=== PATIENT | male | born 1975 | race Caucasian/White ===

== ENCOUNTER → 2021-10-15 11:30 | Outpatient (CLI) | payer BC, OTHER, SELFPAY | PROVIDERS: PCP Family Medicine; Visit Provider Urology | DX: Z01.812 Encounter for preprocedural laboratory examination (principal); Z20.822 Contact with and (suspected) exposure to COVID-19; Z30.2 Encounter for sterilization | CPT/HCPCS: C9803; U0003; U0005 ==

== ENCOUNTER 2021-10-17 06:01 | Day surgery (SDC) | payer BC, OTHER, SELFPAY ==
[2021-10-13 13:13] VITALS: BMI 28.7
[2021-10-17 06:20] VITALS: BP 171/101; PULSE 66; RESP 18; TEMP 36.4; O2SAT 99
--- NOTE | 2021-10-17 07:32 | HMH.ANESCL ---
[facility] [place] Anesthesia Checklist - Patient Identification Patient Identification: Arm Band - Structural Data Admitted From: Home Planned Operative Procedure/s: Vasectomy Consent for Planned Operative Procedure(s) Verified: Yes Verified Documents: Surgical Consent, History and Physical - NPO Status Verified Time NPO: 00:00 - Additional verifications Anesthesia Reactions: No Hx Blood Transfusions: No Blood Transfusion Reaction: No - Cardiovascular Assessment Heart Sounds: S1 & S2 Pulse Rhythm: Regular - Airway Assessment C-Spine Mobility Assessed: Yes TMJ Mobility Assessed: Yes Dentition: Good Dentition - Neurological Assessment Level of Consciousness: Awake, Alert - Anesthesia Plan Anesthesia Risk discussed: Yes Anesthesia Plan: Verified ASA Class: II Anesthesia Type: MAC [facility] [place] History I have reviewed the patient's past medical history: Yes Medical History: Reports:: Hypertension Denies:: Cancer, Diabetes Mellitus Type 1, Diabetes Mellitus Type 2, Internal Pacemaker, MRSA, Seizures *Have you ever received a pneumonia vaccine?: No *Have you received a flu vaccine this season?: No Other Medical History: Denies: Blood Transfusion Reaction Anesthesia experience/problems:: nac Other Surgeries: Yes: Hernia Repair. No: Pacemaker Amputation: No Fractures: No - *Social History Last grade of school completed: High school graduate Smoking Status: Never smoker Tobacco Type: cigarettes, smokeless tobacco # Packs/Day (cigarettes): 1 Alcohol Intake: current Alcohol Intake Frequency:: a few times a week Substance Use Type: denies use *Occupational Status:: employed Housing: house Household Members: spouse, family *Travel in the last 8 weeks: None Family Hx:: No significant family history
[2021-10-17 08:26] VITALS: BP 123/79; PULSE 70; RESP 16; TEMP 36.2; O2SAT 95
--- NOTE | 2021-10-17 08:36 | HMH.OPNOTE ---
Date of procedure: 10/17/21 Pre-op Diagnosis:: Sterilization Post-op Diagnosis:: Sterilization Procedure performed:: Vasectomy Surgeon:: Silvano Vargas MD TECHNICAL PROJECT LEAD:: Other (zulema) Anesthesia: MAC Estimated blood loss (mL): 0 Clinical Note:: 46-year-old white male presents for vasectomy. Office consultation was performed previously. Operative findings:: Physical exam reveals normal scrotum and testicles. Procedure was performed without difficulty. Operative note:: Patient taken to the operating room after informed consent was obtained. Placed on the operating table in the supine position and monitored anesthesia care was administered. He was prepped and draped in the standard surgical fashion. Physical examination was within normal limits. The left vas was grasped between 2 fingers and brought up to the midline raphae. Local anesthetic was placed under the skin and around the vas. After adequate analgesia a midline incision was made in the midline raphae about 2 cm in length. A tenaculum was used to grasp the vas and it was brought up through the incision. The basal sheath was incised and the vasa proper was dissected from its surrounding adventitial tissue. 1 clip was placed distally and 2 clips were placed proximally. A 1 cm segment was excised and the basal lumens were cauterized. Hemostasis was achieved of the surrounding tissue and the left vas was dropped back into the left hemiscrotum. Attention was turned to the right vas and the identical procedure was performed. The right vas was brought up through the same midline incision and local anesthetic was placed. The basal sheath incised and the past proper was isolated from and surrounding adventitial tissues. Clips were placed and a 1 cm segment excised. Basal lumen was cauterized and hemostasis performed within the bleeding and the surrounding tissue. Right vas was dropped back into the right hemiscrotum and a 3-0 chromic was placed into the incision in a horizontal mattress fashion. Compression dressing applied. Patient tolerated procedure well there are no complications. Condition: stable Disposition: same day Specimens:: Vas segments were not sent Complications:: None
[2021-10-17 08:41] VITALS: BP 150/92; PULSE 68; RESP 18; TEMP 36.2; O2SAT 95
[2021-10-17 08:56] VITALS: BP 147/104; PULSE 68; RESP 18; TEMP 36.2; O2SAT 98
[2021-10-17 09:25] VITALS: BP 143/106; PULSE 59; RESP 18; TEMP 36.2; O2SAT 99
== END 2021-10-17 09:25 | disposition home or self-care (01) ==
LOC: OR 06:02
PROVIDERS: PCP Family Medicine; Visit Provider Urology
PROC: (CPT 55250; principal; 2021-10-17 07:30)
DX: Z30.2 Encounter for sterilization (principal); I10 Essential (primary) hypertension; Z79.899 Other long term (current) drug therapy
CPT/HCPCS: 55250; J2704

== ENCOUNTER 2022-10-12 08:45 | Emergency (ER) | payer BC, OTHER, SELFPAY ==
[2022-10-12 08:46] VITALS: BP 160/103; PULSE 61; RESP 18; TEMP 36.8; O2SAT 100; BMI 29.4
--- NOTE | 2022-10-12 09:10 | EXP.UTC ---
Discharge Plan Disposition Patient Disposition: Home, Self-Care Condition: Good Prescriptions Prescriptions: New cyclobenzaprine 10 mg Tablet 10 mg PO BID PRN (Reason: Muscle Spasm) Qty: 20 0RF methylprednisolone 4 mg Tablets,Dose Pack 4 mg PO DIRECTED Qty: 21 0RF No Action metoprolol tartrate 100 mg tablet 100 mg PO DAILY Referrals Follow up/Referrals: Saman Barraza [Primary Care Provider] - See instructions Activity Restrictions/Add. Instructions Additional Instructions/Restrictions: Go home and rest. It would be best if you rested tomorrow too. No heavy lifting. No twisting. Take the oral medications as directed. The muscle relaxer (cyclobenzaprine--Flexeril) will make you drowsy, so don't drive or operate heavy machinery after taking it. Don't start the oral steroids (medrol dose pack) until tomorrow, since you had the shots in here today. Follow up with your regular doctor. GO TO THE ER FOR ANY WORSENING SYMPTOMS OR CONCERN, ESPECIALLY BOWEL OR BLADDER ISSUES, SADDLE AREA NUMBNESS, FEVER, ETC Clinical Impressions Clinical Impression: Low back pain Instructions Patient Instructions: Low Back Pain, DI for Low Back Pain Discharge ED Provider: Kaleb Lopez [facility] General Stated complaint: Back pain Mode of Arrival: Ambulatory Source of Information: Patient Limitations: No Limitations Time Seen by Provider: 10/12/22 09:10 Description of Symptoms (Recalled from Triage Doc. by RN): Patient reports back pain that started 6 days ago. HEENT Symptoms (Recalled from RN notes): No Resp Symptoms (Recalled from RN notes): No Skin Symptoms (Recalled from RN notes): No MS Symptoms (Recalled from RN notes): Yes Functional Status (Recalled from RN notes): wnl History of Present Illness Provider Complaint: He states that for the past 5 days he has had low back pain that radiates down his left leg. He denies any recent injury or falls. He has a history of having episodes of pain like this at times. He usually has to get anti-inflammatory injection and steroid injection to get it better. He denies any urinary symptoms. Related Data Home Medications Medication Instructions Recorded Confirmed metoprolol tartrate 100 mg tablet 100 mg PO DAILY High blood pressure 08/17/21 10/17/21 Previous Rx's Medication Instructions Recorded cyclobenzaprine 10 mg tablet 10 mg PO BID PRN Muscle Spasm #20 10/12/22 tabs methylprednisolone 4 mg tablets in 4 mg PO DIRECTED #21 tabs 10/12/22 a dose pack Allergies Allergy/AdvReac Type Severity Reaction Status Date / Time Sulfa (Sulfonamide Allergy Mild Verified 10/13/21 13:20 Antibiotics) [SULFA (SULFONAMIDE ANTIBIOTICS)] Worker's Comp Is this a Worker's Comp case?: No [facility] Disclaimer: The information contained in this section may have been updated after the patient was seen, as this information can be updated by other users. Social History Smoking Status: Never smoker alcohol intake: current substance use type: denies use current occupational status: employed Travel in the last 8 weeks: None household members: spouse and family housing: house current occupation: self-employeed caffeine: Yes ROS Obtained: Yes All systems reviewed & no additional complaints except as documented Constitutional Constitutional: Denies chills and Denies fever(s) Eyes Eyes: Denies eye discharge ENT Ears, Nose, Mouth, and Throat: Denies dizziness, Denies otalgia and Denies sore throat Cardiovascular Cardiovascular: Denies chest pain Respiratory Respiratory: Denies shortness of breath, Denies chest congestion, Denies cough, Denies stridor and Denies wheezing Gastrointestinal Gastrointestingal: Denies nausea or vomiting Musculoskeletal Musculoskeletal: Reports system reviewed and no additional complaints, except as documented and Denies arthralgias Integumentary/Breasts Skin/Breast: Denies rash Neuro
[2022-10-12 09:44] VITALS: BP 160/103; PULSE 61; RESP 18; TEMP 36.8; O2SAT 100
== END 2022-10-12 09:45 | disposition home or self-care (01) ==
PROVIDERS: Emergency Provider Nurse Practitioner Family; PCP Family Medicine
DX: M54.50 Low back pain, unspecified (principal)
CPT/HCPCS: 96372; 99204; 99212; G0463

== ENCOUNTER 2023-05-26 13:23 | Emergency (ER) | payer BC, OTHER, SELFPAY ==
[2023-05-26 13:45] VITALS: BP 140/95; PULSE 70; RESP 17; TEMP 36.8; O2SAT 95; BMI 31.2
[2023-05-26 13:59] LABS: UTC Influenza A Antigen Negative (Negative); UTC Influenza B Antigen Positive (Negative)
--- NOTE | 2023-05-26 14:00 | ED_ITS ---
Discharge Plan Disposition Patient Disposition: Home, Self-Care Condition: Good Prescriptions Prescriptions: New oseltamivir [Tamiflu] 75 mg capsule 75 mg PO Q12H 5 Days Qty: 10 0RF benzonatate 100 mg capsule 100 mg PO TID PRN (Reason: cough) Qty: 30 0RF amoxicillin 875 mg tablet 875 mg PO BID 10 Days Qty: 20 0RF No Action metoprolol tartrate 100 mg tablet 100 mg PO DAILY bupropion HCl 150 mg tablet sustained-release 12 hr 150 mg PO DAILY hydrochlorothiazide 25 mg tablet 25 mg PO DAILY Referrals Follow up/Referrals: Saman Barraza [Primary Care Provider] - See instructions Activity Restrictions/Add. Instructions Additional Instructions/Restrictions: Do not take antibiotics unless symptoms of sinus infection persist for 2 weeks. Clinical Impressions Clinical Impression: Influenza due to influenza virus, type B Upper respiratory tract infection Qualifiers: URI type: unspecified URI Qualified Code(s): J06.9 - Acute upper respiratory infection, unspecified Instructions Patient Instructions: DI for Influenza -- Adult Discharge ED Provider: Cecilia Alexis [facility] General Stated complaint: chills, congestion, body aches Mode of Arrival: Ambulatory Source of Information: Patient Limitations: No Limitations Time Seen by Provider: 05/26/23 13:59 Description of Symptoms (Recalled from Triage Doc. by RN): PATIENT C/O CONGESTION AND CHILLS X 2 DAYS HEENT Symptoms (Recalled from RN notes): Yes Resp Symptoms (Recalled from RN notes): No Skin Symptoms (Recalled from RN notes): No MS Symptoms (Recalled from RN notes): No Functional Status (Recalled from RN notes): WNL Related Data Home Medications Medication Instructions Recorded Confirmed metoprolol tartrate 100 mg tablet 100 mg PO DAILY High blood pressure 08/17/21 05/26/23 bupropion HCl 150 mg tablet,12 hr 150 mg PO DAILY 05/26/23 05/26/23 sustained-release hydrochlorothiazide 25 mg tablet 25 mg PO DAILY 05/26/23 05/26/23 Previous Rx's Medication Instructions Recorded amoxicillin 875 mg tablet 875 mg PO BID 10 days #20 tabs 05/26/23 benzonatate 100 mg capsule 100 mg PO TID PRN cough #30 caps 05/26/23 oseltamivir 75 mg capsule (Tamiflu) 75 mg PO Q12H 5 days #10 caps 05/26/23 Allergies Allergy/AdvReac Type Severity Reaction Status Date / Time Sulfa (Sulfonamide Allergy Mild Verified 10/13/21 13:20 Antibiotics) [SULFA (SULFONAMIDE ANTIBIOTICS)] Worker's Comp Is this a Worker's Comp case?: No [facility] Disclaimer: The information contained in this section may have been updated after the patient was seen, as this information can be updated by other users. Social History Smoking Status: Never smoker alcohol intake: current substance use type: denies use current occupational status: employed Travel in the last 8 weeks: None household members: spouse and family housing: house current occupation: self-employeed caffeine: Yes ROS Obtained: Yes All systems reviewed & no additional complaints except as documented Constitutional Constitutional: Reports system reviewed and no additional complaints, except as documented, Reports fever(s), Reports headache(s) and Reports malaise Eyes Eyes: Reports system reviewed and no additional complaints, except as documented ENT Ears, Nose, Mouth, and Throat: Reports system reviewed and no additional complaints, except as documented, Reports headache(s), Reports nasal congestion, Reports nasal discharge and Reports sore throat Cardiovascular Cardiovascular: Reports system reviewed and no additional complaints, except as documented Respiratory Respiratory: Reports system reviewed and no additional complaints, except as documented and Reports non-productive cough Gastrointestinal Gastrointestingal: Reports system reviewed and no additional complaints, except as documented Genitourinary Male Genitourinary: Reports system reviewed and no additional complaints, except as documented Musculoskeletal Musculoskeletal: Reports system reviewed and no additional complaints, except as documented Integumentary/Breasts Skin/Breast: Reports system reviewed and no additional complaints, except as documented Neurologic Neurologic: Reports system reviewed and no additional complaints, except as documented and Reports headache(s) Endocrine Endocrine: Reports system reviewed and no additional complaints, except as documented Hematologic/Lymphatic Henatologic/Lymphatic: Reports system reviewed and no additional complaints, except as documented Allergic/Immunologic Allergic/Immunologic: Reports system reviewed and no additional complaints, except as documented Physical Exam General General appearance: alert Comment: ill appearing Head Head exam: atraumatic and normocephalic Eye Eye exam: Present normal appearance ENT ENT exam: Present mucous membranes dry Expanded ENT Exam External ear exam: Present normal external inspection Nose exam: Present sinus tenderness Nasal speculum exam: Bilateral: other (clear drainage) Mouth exam: Present normal external inspection and tongue normal Teeth exam: Present normal inspection Throat exam: Present normal inspection Neck Neck exam: Present normal inspection Chest Chest inspection: Present normal inspection and symmetric chest wall rise Respiratory Respiratory exam: Present normal lung sounds bilaterally Cardiovascular Cardiovascular exam: Present regular rate and normal rhythm Abdominal Exam Abdominal exam: Present soft and normal bowel sounds Extremities Exam Extremities exam: Present normal inspection Back Exam Back exam: Present normal inspection Neurological Exam Neurological exam: Present alert and oriented X3 Psychiatric Psychiatric exam: Present normal affect and normal mood Skin Skin exam: Present warm, dry and intact Lymphatic Lymphatic Findings: no adenopathy Other Other exam information: Pt very concerned as he relates that after having flu he always gets a sinus infection. Medical Decision Making Marcel Inquiry Pt receiving controlled substance: No Marcel was queried for this patient: No Vital Signs: 05/26/23 13:45 Temperature 98.3 F Temperature Source Oral Pulse Rate [Left Brachial] 70 Respiratory Rate 17 Blood Pressure [Left Arm] 140/95 H Blood Pressure Mean [Left Arm] 110 Blood Pressure Source [Left Arm] Automatic Cuff Blood Pressure Position [Left Arm] Sitting 02 Sat by Pulse Oximetry 95 Oxygen Delivery Method Room Air Lab Data Lab Results 05/26/23 13:50: Influenza Type A Ag Negative, Influenza Type B Ag Positive A
[2023-05-26 14:18] VITALS: BP 140/95; PULSE 70; RESP 17; TEMP 36.8; O2SAT 95
== END 2023-05-26 14:20 | disposition home or self-care (01) ==
PROVIDERS: Emergency Provider Nurse Practitioner Family; PCP Family Medicine
DX: J10.1 Influenza due to other identified influenza virus with other respiratory manifestations (principal); R05.9 Cough, unspecified; R51.9 Headache, unspecified; R09.81 Nasal congestion; R07.0 Pain in throat
CPT/HCPCS: 87804; 99212; 99214; G0463

== ENCOUNTER 2023-09-30 14:14 | Emergency (ER) | payer BC, OTHER, SELFPAY ==
[2023-09-30 15:00] VITALS: BP 136/83; PULSE 70; RESP 18; TEMP 36.3; O2SAT 96; BMI 29.8
--- NOTE | 2023-09-30 15:13 | ED_ITS ---
Discharge Plan Disposition Patient Disposition: Home, Self-Care Condition: Good Prescriptions Prescriptions: New cephalexin 500 mg tablet 500 mg PO BID 7 Days Qty: 14 0RF No Action metoprolol tartrate 100 mg tablet 100 mg PO DAILY hydrochlorothiazide 25 mg tablet 25 mg PO DAILY Referrals Follow up/Referrals: Saman Barraza [Primary Care Provider] - See instructions Activity Restrictions/Add. Instructions Additional Instructions/Restrictions: return in 7-10 days for suture removal monitor for s/s of infection return if needed Clinical Impressions Clinical Impression: Laceration Instructions Patient Instructions: DI for Laceration Repair -- Simple, DI for Laceration Repair -- Finger Discharge ED Provider: Dayanara ([facility])[place] [facility] [place] General Stated complaint: cut on left index finger Mode of Arrival: Ambulatory Source of Information: Patient Limitations: No Limitations Time Seen by Provider: 09/30/23 15:13 Description of Symptoms (Recalled from Triage Doc. by RN): left index laceration HEENT Symptoms (Recalled from RN notes): No Resp Symptoms (Recalled from RN notes): No Skin Symptoms (Recalled from RN notes): Yes MS Symptoms (Recalled from RN notes): No Functional Status (Recalled from RN notes): n/a History of Present Illness Provider Complaint: 48 yr old presents for left index finger laceration. pt states he was cleaning a catfish and the emmanuel cut him. last tetnus was 2018 Related Data Home Medications Medication Instructions Recorded Confirmed metoprolol tartrate 100 mg tablet 100 mg PO DAILY High blood pressure 08/17/21 09/30/23 hydrochlorothiazide 25 mg tablet 25 mg PO DAILY 05/26/23 09/30/23 Previous Rx's Medication Instructions Recorded cephalexin 500 mg tablet 500 mg PO BID 7 days #14 tabs 09/30/23 Allergies Allergy/AdvReac Type Severity Reaction Status Date / Time Sulfa (Sulfonamide Allergy Mild Verified 09/30/23 15:08 Antibiotics) [SULFA (SULFONAMIDE ANTIBIOTICS)] Worker's Comp Is this a Worker's Comp case?: No [facility] Disclaimer: The information contained in this section may have been updated after the patient was seen, as this information can be updated by other users. Social History Smoking Status: Never smoker alcohol intake: current alcohol intake frequency: a few times a week substance use type: denies use current occupational status: employed Travel in the last 8 weeks: None household members: spouse and family housing: house current occupation: self-employeed caffeine: Yes ROS Obtained: Yes All systems reviewed & no additional complaints except as documented Constitutional Constitutional: Reports system reviewed and no additional complaints, except as documented Eyes Eyes: Reports system reviewed and no additional complaints, except as documented ENT Ears, Nose, Mouth, and Throat: Reports system reviewed and no additional complaints, except as documented Cardiovascular Cardiovascular: Reports system reviewed and no additional complaints, except as documented Respiratory Respiratory: Reports system reviewed and no additional complaints, except as documented Musculoskeletal Musculoskeletal: Reports system reviewed and no additional complaints, except as documented Integumentary/Breasts Skin/Breast: Reports system reviewed and no additional complaints, except as documented, Reports as per HPI and Reports wounds Neurologic Neurologic: Reports system reviewed and no additional complaints, except as documented Endocrine Endocrine: Reports system reviewed and no additional complaints, except as documented Hematologic/Lymphatic Henatologic/Lymphatic: Reports system reviewed and no additional complaints, except as documented Allergic/Immunologic Allergic/Immunologic: Reports system reviewed and no additional complaints, except as documented Physical Exam General General appearance: alert and in no apparent distress Head Head exam: atraumatic Respiratory Respiratory exam: Present normal lung sounds bilaterally Cardiovascular Cardiovascular exam: Present regular rate and normal rhythm Expanded Upper Extremity Exam Left: Hand L/R front image: 2 1. laceration Neurological Exam Neurological exam: Present alert and oriented X3 Lymphatic Lymphatic Findings: no adenopathy Medical Decision Making Medical Records Medical records reviewed: Yes I reviewed the patient's medical records. Marcel Inquiry Pt receiving controlled substance: No Marcel was queried for this patient: No Vital Signs: 09/30/23 15:00 Temperature 97.3 F L Temperature Source Oral Pulse Rate [Right Radial] 70 Respiratory Rate 18 Blood Pressure [Right Arm] 136/83 Blood Pressure Mean [Right Arm] 100 Blood Pressure Source [Right Arm] Automatic Cuff Blood Pressure Position [Right Arm] Sitting 02 Sat by Pulse Oximetry 96 Oxygen Delivery Method Room Air Procedures Laceration Laceration 1: Site: finger Side (If applicable): left Size (cm): 2 Description: linear Depth: simple, single layer Local Anesthetic: lidocaine 1% Amount of anesthesia used (mL): 5 Pre-repair: wound explored, irrigated extensively and deep structures intact Skin layer closed with: nylon Size (cm): 4-0 Number of sutures: 4 Technique: simple, interrupted
[2023-09-30] MEDS: TET/DIPHTH/PERT-ADULT 0.5ML SYRINGE 0.5 ML IM (15:45)
[2023-09-30 16:26] VITALS: BP 136/83; PULSE 70; RESP 18; TEMP 36.3; O2SAT 96
--- NOTE | 2023-09-30 16:27 | PC.NURSE ---
provider put in 4 stitches
== END 2023-09-30 16:27 | disposition home or self-care (01) ==
PROVIDERS: Emergency Provider Nurse Practitioner Family; PCP Family Medicine
DX: S61.201A Unspecified open wound of left index finger without damage to nail, initial encounter (principal); W26.8XXA Contact with other sharp object(s), not elsewhere classified, initial encounter; Z23 Encounter for immunization
CPT/HCPCS: 12001; 90471; 90715; 99213; 99214; G0463

== ENCOUNTER 2023-10-21 13:18 | Emergency (ER) | payer BC, OTHER, SELFPAY ==
[2023-10-21 13:35] VITALS: BP 113/71; PULSE 78; RESP 18; TEMP 37.2; O2SAT 96; BMI 30.2
--- NOTE | 2023-10-21 13:35 | ED_ITS ---
Discharge Plan Disposition Patient Disposition: Home, Self-Care Condition: Good Prescriptions Prescriptions: New azithromycin [Zithromax] 250 mg tablet 250 mg PO UD DOSE PK Qty: 6 0RF Rx Instructions: Take two (2) tablets today, then one (1) tablet days #2 thru #5 methylprednisolone 4 mg Tablets,Dose Pack 4 mg PO DIRECTED 6 Days Qty: 21 0RF Rx Instructions: Take 1 pack as directed for 6 days albuterol sulfate [Ventolin HFA] 90 mcg/actuation HFA aerosol inhaler 2 puff inhalation Q6H PRN (Reason: shortness of breath or wheezing) Qty: 6.7 0RF benzonatate 100 mg capsule 100 mg PO TIDP PRN (Reason: Cough) Qty: 30 0RF No Action metoprolol tartrate 100 mg tablet 100 mg PO DAILY hydrochlorothiazide 25 mg tablet 25 mg PO DAILY Referrals Follow up/Referrals: Saman Barraza [Primary Care Provider] - See instructions Activity Restrictions/Add. Instructions Additional Instructions/Restrictions: Drink plenty of fluids. Take tylenol or ibuprofen for pain or fever. Take the medications as directed. Don't start the oral steroids (medrol dose pack) until tomorrow since you had the shot her Follow up with your regular doctor. GO TO THE ER FOR ANY WORSENING SYMPTOMS Clinical Impressions Clinical Impression: Acute viral syndrome, Bronchitis Instructions Patient Instructions: DI for Acute Bronchitis, DI for Viral Syndrome Discharge ED Provider: Kaleb Lopez [facility] [place] General Stated complaint: Chills, body aches Time Seen by Provider: 10/21/23 13:35 History of Present Illness Provider Complaint: He states that for the past 3 days he has had worsening body aches, chills, low grade fever, chest congestion and sinus congestion. Related Data Home Medications Medication Instructions Recorded Confirmed metoprolol tartrate 100 mg tablet 100 mg PO DAILY High blood pressure 08/17/21 10/21/23 hydrochlorothiazide 25 mg tablet 25 mg PO DAILY 05/26/23 09/30/23 Previous Rx's Medication Instructions Recorded albuterol sulfate 90 mcg/actuation 2 puff inhalation Q6H PRN 10/21/23 aerosol inhaler (Ventolin HFA) shortness of breath or wheezing #6.7 grams azithromycin 250 mg tablet 250 mg PO UD DOSE PK #6 tabs 10/21/23 (Zithromax) benzonatate 100 mg capsule 100 mg PO TIDP PRN Cough #30 caps 10/21/23 methylprednisolone 4 mg tablets in 4 mg PO DIRECTED 6 days #21 tabs 10/21/23 a dose pack Allergies Allergy/AdvReac Type Severity Reaction Status Date / Time Sulfa (Sulfonamide Allergy Mild Verified 09/30/23 15:08 Antibiotics) [SULFA (SULFONAMIDE ANTIBIOTICS)] [facility] Disclaimer: The information contained in this section may have been updated after the patient was seen, as this information can be updated by other users. Medical History (Updated 10/21/23 @ 14:18 by Kaleb Lopez APRN) Hypertension Social History Smoking Status: Never smoker alcohol intake: current alcohol intake frequency: a few times a week substance use type: denies use current occupational status: employed Travel in the last 8 weeks: None household members: spouse and family housing: house current occupation: self-employeed caffeine: Yes ROS Obtained: Yes All systems reviewed & no additional complaints except as documented Constitutional Constitutional: Reports chills and Reports fever(s) Eyes Eyes: Denies eye discharge ENT Ears, Nose, Mouth, and Throat: Reports as per HPI Cardiovascular Cardiovascular: Denies chest pain Respiratory Respiratory: Denies chest congestion and Reports cough Gastrointestinal Gastrointestingal: Reports nausea; Denies abdominal pain, constipation, cramping, diarrhea or vomiting Musculoskeletal Musculoskeletal: Denies arthralgias Integumentary/Breasts Skin/Breast: Denies rash Neurologic Neurologic: Denies paresthesias Physical Exam General General appearance: alert and in no apparent distress Eye Eye exam: Present normal appearance, PERRL and EOMI ENT ENT exam: Present mucous membranes moist and normal external ear exam Expanded ENT Exam External ear exam: Present normal external inspection TM/Canal exam: Bilateral TM: erythema and bulging Nose exam: Absent sinus tenderness Nasal speculum exam: Bilateral: normal Mouth exam: Present normal external inspection; Absent drooling Teeth exam: Present normal inspection Throat exam: Present tonsillar erythema and tonsillomegaly Neck Neck exam: Present normal inspection, full ROM and trachea midline; Absent tenderness, lymphadenopathy or thyromegaly Chest Chest inspection: Present normal inspection and symmetric chest wall rise; Absent tenderness or rash Respiratory Respiratory exam: Present normal lung sounds bilaterally; Absent respiratory distress, wheezes, stridor or accessory muscle use Cardiovascular Cardiovascular exam: Present regular rate, normal rhythm and normal heart sounds Abdominal Exam Abdominal exam: Present soft; Absent distention, tenderness, guarding, rebound or rigidity Extremities Exam Extremities exam: Present normal inspection, full ROM and normal capillary refill; Absent tenderness or calf tenderness Back Exam Back exam: Present normal inspection and full ROM; Absent tenderness Neurological Exam Neurological exam: Present alert and oriented X3 Psychiatric Psychiatric exam: Present normal affect and normal mood Skin Skin exam: Present warm, dry, intact and normal color Lymphatic Lymphatic Findings: no adenopathy Medical Decision Making Medical Records Medical records reviewed: No I reviewed the patient's medical records. Marcel Inquiry Pt receiving controlled substance: No Lab Data Lab results reviewed: Yes I reviewed the patient's lab results.
[2023-10-21 13:51] LABS: UTC Influenza A Antigen Negative (Negative)
[2023-10-21 13:52] LABS: UTC Influenza B Antigen Negative (Negative)
[2023-10-21] MEDS: cefTRIAXone 1GM VIAL 1 GM IM (14:30)
[2023-10-21] MEDS: DEXAMETHASONE 4MG/ML 1ML VIAL 8 MG IM (14:30)
[2023-10-21] MEDS: LIDOCAINE 1% 5ML PF VIAL IM (14:34)
[2023-10-21 14:49] VITALS: BP 113/71; PULSE 78; RESP 18; TEMP 37.2; O2SAT 96
== END 2023-10-21 14:50 | disposition home or self-care (01) ==
PROVIDERS: Emergency Provider Nurse Practitioner Family; PCP Family Medicine
DX: J20.9 Acute bronchitis, unspecified (principal); R50.9 Fever, unspecified; R09.81 Nasal congestion; B34.9 Viral infection, unspecified
CPT/HCPCS: 87804; 96372; 99212; 99214; G0463; J0696; J1100

== ENCOUNTER 2024-01-03 11:21 | Emergency (ER) | payer BC, OTHER, SELFPAY ==
[2024-01-03 11:37] VITALS: BP 142/86; PULSE 59; RESP 20; TEMP 36.8; O2SAT 98; BMI 37.8
--- NOTE | 2024-01-03 11:42 | PC.NURSE ---
PATIENT REFUSING XRAYS THEN AFTER LOSING CONSCIOUSNESS. RN AND CATALYST UNIT OPERATOR EXPLAINED DANGERS OF FALLING THAT FAR AND POTENTIAL RISK. PATIENT STILL REFUSING CARE.
--- NOTE | 2024-01-03 11:42 | PC.NURSE ---
pt states he is UTD on tdap. Per records tdap was 09/30/23
--- NOTE | 2024-01-03 11:47 | ED_ITS ---
Discharge Plan Disposition Patient Disposition: Home, Self-Care Condition: Good Prescriptions Prescriptions: New cyclobenzaprine 10 mg Tablet 10 mg PO BID PRN (Reason: Muscle Spasm) Qty: 20 0RF ibuprofen [IBU] 800 mg tablet 800 mg PO Q8HP PRN (Reason: Moderate Pain) Qty: 30 0RF cephalexin 500 mg capsule 500 mg PO QID 10 Days Qty: 40 0RF No Action metoprolol tartrate 100 mg tablet 100 mg PO DAILY hydrochlorothiazide 25 mg tablet 25 mg PO DAILY amoxicillin 500 mg capsule 500 mg PO BID alprazolam 1 mg tablet 1 mg PO DIRECTED hydrocodone-acetaminophen 7.5-325 mg tablet 1 tab PO Q6HP PRN (Reason: Pain) albuterol sulfate [Ventolin HFA] 90 mcg/actuation HFA aerosol inhaler 2 puff inhalation Q6H PRN (Reason: shortness of breath or wheezing) Qty: 6.7 0RF Referrals Follow up/Referrals: Saman Barraza [Primary Care Provider] - See instructions Activity Restrictions/Add. Instructions Additional Instructions/Restrictions: Keep the wound clean and dry. Keep a dressing on it if you are going to be getting it dirty. Watch the wound for signs of infection, such as redness, swelling, drainage, fever. etc. Follow up with your regular doctor. Return in 7 to 10 days to have the sutures removed. GO TO THE ER FOR ANY WORSENING SYMPTOMS OR CONCERNS. Go home and rest. It would be best if you rested tomorrow too. No heavy lifting & No twisting for the next few days. The muscle relaxer (cyclobenzaprine--Flexeril) will make you drowsy, so don't drive or operate heavy machinery after taking it. Follow up with your regular doctor. GO TO THE ER FOR ANY WORSENING SYMPTOMS OR CONCERN, ESPECIALLY BOWEL OR BLADDER ISSUES, SADDLE AREA NUMBNESS, FEVER, ETC Clinical Impressions Clinical Impression: Fall, Laceration of elbow, left, Contusion of rib on right side, Rib pain on right side Instructions Patient Instructions: DI for Laceration Repair -- Simple, DI for Rib Contusion, Ibuprofen, Cyclobenzaprine, Cephalexin Print Language Print Language: Slovenian Discharge ED Provider: Kaleb Lopez [facility] General Stated complaint: AO 01/03/24 10:50, fell off roof, inj lt arm,rt cary Mode of Arrival: Ambulatory Source of Information: Patient Time Seen by Provider: 01/03/24 11:47 Description of Symptoms (Recalled from Triage Doc. 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 He came down on his right side and he hit his left elbow on the ladder. He denies any head injury, denies loc. denies neck and back pain. He refuses any x-rays. Related Data Home Medications ?Medication ?Instructions ?Recorded ?Confirmed metoprolol tartrate 100 mg tablet 100 mg PO DAILY High blood pressure 08/17/21 01/03/24 hydrochlorothiazide 25 mg tablet 25 mg PO DAILY 05/26/23 01/03/24 alprazolam 1 mg tablet 1 mg PO DIRECTED 01/03/24 01/03/24 amoxicillin 500 mg capsule 500 mg PO BID 01/03/24 01/03/24 hydrocodone 7.5 mg-acetaminophen 1 tab PO Q6HP PRN Pain 01/03/24 01/03/24 325 mg tablet Previous Rx's ?Medication ?Instructions ?Recorded albuterol sulfate 90 mcg/actuation 2 puff inhalation Q6H PRN 10/21/23 aerosol inhaler (Ventolin HFA) shortness of breath or wheezing #6.7 grams cephalexin 500 mg capsule 500 mg PO QID 10 days #40 caps 01/03/24 cyclobenzaprine 10 mg tablet 10 mg PO BID PRN Muscle Spasm #20 01/03/24 tabs ibuprofen 800 mg tablet (IBU) 800 mg PO Q8HP PRN Moderate Pain 01/03/24 #30 tabs Allergies Allergy/AdvReac Type Severity Reaction Status Date / Time Sulfa (Sulfonamide Allergy Mild Verified 09/30/23 15:08 Antibiotics) [SULFA (SULFONAMIDE ANTIBIOTICS)] Worker's Comp Is this a Worker's Comp case?: No [facility] Disclaimer: The information contained in this section may have been updated after the patient was seen, as this information can be updated by other users. Medical History (Updated 01/03/24 @ 12:49 by Kaleb Lopez APRN) Hypertension Social History Smoking Status: Never smoker alcohol intake: current alcohol intake frequency: a few times a week substance use type: denies use current occupational status: employed Travel in the last 8 weeks: None household members: spouse and family housing: house current occupation: self-employeed caffeine: Yes ROS Obtained: Yes All systems reviewed & no additional complaints except as documented Constitutional Constitutional: Denies chills and Denies fever(s) Eyes Eyes: Denies eye discharge ENT Ears, Nose, Mouth, and Throat: Denies dizziness, Denies otalgia and Denies sore throat Cardiovascular Cardiovascular: Reports as per HPI and Denies chest pain Respiratory Respiratory: Denies shortness of breath, Denies chest congestion, Denies cough, Denies stridor and Denies wheezing Gastrointestinal Gastrointestingal: Denies nausea or vomiting Musculoskeletal Musculoskeletal: Reports as per HPI Integumentary/Breasts Skin/Breast: Reports as per HPI Neurologic Neurologic: Denies dizziness and Denies paresthesias Allergic/Immunologic Allergic/Immunologic: Denies wheezing Physical Exam General General appearance: alert and in no apparent distress Head Head exam: atraumatic, normocephalic and normal inspection Eye Eye exam: Present normal appearance, PERRL and EOMI ENT ENT exam: Present normal exam, normal oropharynx, mucous membranes moist, TM's normal bilaterally and normal external ear exam Neck Neck exam: Present normal inspection, full ROM and trachea midline; Absent meningismus or lymphadenopathy Chest Chest inspection: Present normal inspection and symmetric chest wall rise; Absent tenderness Respiratory Respiratory exam: Present normal lung sounds bilaterally; Absent respiratory distress Cardiovascular Cardiovascular exam: Present regular rate and normal rhythm; Absent JVD Abdominal Exam Abdominal exam: Present soft and normal bowel sounds; Absent distention, tendern ess or guarding Extremities Exam Extremities exam: Present normal capillary refill; Absent calf tenderness Expanded Upper Extremity Exam Left: Shoulder exam: Present normal inspection and full ROM; Absent tenderness or tenderness over AC joint Arm exam: Present normal inspection and full ROM; Absent tenderness, swelling, abrasion, laceration, ecchymosis, deformity, crepitus or erythema Elbow exam: Present full ROM, tenderness and laceration; Absent swelling, abrasion, ecchymosis, deformity, crepitus, dislocation, erythema, effusion, pain w/ pronation/supination or tenderness over radial head Forearm/Wrist exam: Present normal inspection and full ROM; Absent tenderness Hand exam: Present normal inspection and full ROM; Absent tenderness Neuromotor exam: Normal wrist extension, thumb opposition, thumb IP flexion, thumb adduction and fingers 2-5 abduction Neurosensory exam: Normal radial nerve, ulnar nerve and median nerve Vascular exam: Normal capillary refill, radial pulse and ulnar pulse Back Exam Back exam: Present normal inspection; Absent tenderness Neurological Exam Neurological exam: Present alert and oriented X3 Psychiatric Psychiatric exam: Present normal affect and normal mood Skin Skin exam: Present warm, dry, intact and normal color Lymphatic Lymphatic Findings: no adenopathy Medical Decision Making Medical Records Medical records reviewed: No I reviewed the patient's medical records. Screening: Per USPSTF and CDC recommendations, given the prevalence of disease in our region, it is our hospital?s policy to screen for HIV and viral Hepatitis for all patients aged 18 and over and those with ongoing risk factors. Marcel Inquiry Pt receiving controlled substance: No Vital Signs: 01/03/24 11:37 Temperature 98.2 F Temperature Source Oral Pulse Rate [Left Radial] 59 L Respiratory Rate 20 Blood Pressure [Left Arm] 142/86 H Blood Pressure Mean [Left Arm] 104 02 Sat by Pulse Oximetry 98 Procedures Risk/Benefits of Procedure(s) Were Explained: Yes Laceration Laceration 1: Site: upper extremity Side (If applicable): left Size (cm): 2 Description: linear Depth: simple, single layer Local Anesthetic: lidocaine 1% Amount of anesthesia used (mL): 1.5 Pre-repair: wound explored, irrigated extensively and deep structures intact Skin layer closed with: nylon Size (cm): 5-0 Number of sutures: 5 Technique: simple, interrupted (He tolerated this well, good closure was obtained, the edges were approximated well. )
[2024-01-03 12:51] VITALS: BP 142/86; PULSE 59; RESP 20; TEMP 36.8
== END 2024-01-03 12:54 | disposition home or self-care (01) ==
PROVIDERS: Emergency Provider Nurse Practitioner Family; PCP Family Medicine
DX: S51.012A Laceration without foreign body of left elbow, initial encounter (principal); S20.211A Contusion of right front wall of thorax, initial encounter; R07.81 Pleurodynia; W13.2XXA Fall from, out of or through roof, initial encounter
CPT/HCPCS: 12001; 99213; 99214; G0463